=== PATIENT | male | born 2000 | race Caucasian/White ===

== ENCOUNTER → 2019-05-23 | Outpatient (CLI) | payer OTHER | LOC: RAD 10:49 | DX: R05 Cough (principal) ==

== ENCOUNTER → 2019-06-02 | Outpatient (CLI) | payer OTHER | LOC: RAD 09:39 | DX: J18.9 Pneumonia, unspecified organism (principal); J45.20 Mild intermittent asthma, uncomplicated; R91.8 Other nonspecific abnormal finding of lung field ==